=== PATIENT | female | born 1995 | race Caucasian/White ===

== ENCOUNTER → 2016-09-21 | Outpatient (REF) ==
--- NOTE | 2016-09-21 13:58 | REP ---
Clinical: Pain and disability. Technique: Neutral and frog lateral views of the right and left hip. Findings: Minimal increased sclerosis along the acetabular roof and subtle joint space narrowing bilaterally cannot be excluded. Otherwise normal examination. Impression: Cannot exclude minimal joint space narrowing and sclerosis to the acetabular roof bilaterally. Signed by Obi Palacios MD 09/21/2016 01:49 P
== END ==
LOC: M SMT 13:16
PROVIDERS: ATTEND Internal Medicine
DX: Z02.71 Encounter for disability determination (principal); R93.6 Abnormal findings on diagnostic imaging of limbs

== ENCOUNTER 2017-02-08 14:47 | Emergency (ER) | payer OTHER ==
[~2017-02-08] VITALS: Ht 167.6 cm; Wt 74.2 kg
[2017-02-08] MEDS ORDERED: TRAZ50TA11 PO (14:59)
[2017-02-08] MEDS ORDERED: DICL1GEL3 (14:59)
[2017-02-08] MEDS ORDERED: VENL150C43 (14:59)
[2017-02-08] MEDS ORDERED: ZOLP5TAB (14:59)
[2017-02-08 16:39] LABS: CONTROL LINE UCG INT CTR LINE PRESENT
[2017-02-08 16:50] VITALS: BP 120/71
[2017-02-08] MEDS ORDERED: FLAG500T PO (16:53)
[2017-02-08] MEDS ORDERED: DOXY100C37 PO (16:53)
[2017-02-08] MEDS ORDERED: LIDOCAINE 1% MDV 20ML VIAL As Ordered ONE (16:56)
[2017-02-08] MEDS ORDERED: metroNIDAZOLE (FLAGYL) 500 MG TAB PO ONE (17:00)
[2017-02-08] MEDS ORDERED: DOXYCYCLINE HYCLATE 100 MG TAB PO ONE (17:00)
[2017-02-08] MEDS ORDERED: cefTRIAXone SOD 250 MG VIAL (J0696) IM ONE (17:00)
== END 2017-02-08 17:24 | disposition home or self-care (01) ==
LOC: M ED 14:47
DX: N76.0 Acute vaginitis (principal); R53.83 Other fatigue; Z91.09 Other allergy status, other than to drugs and biological substances; Z79.3 Long term (current) use of hormonal contraceptives; Z79.899 Other long term (current) drug therapy
CPT/HCPCS: 81001; 81025; 84703; 87088; 87186; 87210; 87491; 87591; 96372; 99283; J0696